=== PATIENT | female | born 2005 | race Caucasian/White ===

== ENCOUNTER 2024-01-24 10:22 | Outpatient (CLI) | payer BC, SELFPAY | END 2024-01-24 10:23 | disposition home or self-care (01) | PROVIDERS: PCP Emergency Medicine; Visit Provider Emergency Medicine | DX: R63.4 Abnormal weight loss (principal); R11.2 Nausea with vomiting, unspecified; R19.7 Diarrhea, unspecified; Z13.228 Encounter for screening for other metabolic disorders; Z13.220 Encounter for screening for lipoid disorders; Z13.29 Encounter for screening for other suspected endocrine disorder | CPT/HCPCS: 80048; 80061; 80076; 84443; 86140; 86258; 86364 ==

== ENCOUNTER 2024-02-18 15:44 | Outpatient (CLI) | payer BC, SELFPAY ==
--- NOTE | 2024-02-18 16:00 | US_ITS ---
Patient: TIMMY PETERSON Facility:?[facility] Patient ID:?[id number] Site Patient ID:?[id number]. Site :?[id number] Study:?US-Abdomen RUQ-02/18/2024 4:23:39 PM Ordering Physician:?DAVID MARX M.D. Final Report: INDICATION: Nausea COMPARISON: none TECHNIQUE: Real time vela scale imaging and color Doppler analysis was performed of the right upper quadrant. FINDINGS: The patient`s liver is of normal size and has diffusely increased echogenicity. The main portal vein measures 6.7 millimeters. There is a normal appearance of the hepatic IVC and proximal abdominal aorta. There is no evidence of ascites. The gallbladder is of normal size and there is no evidence of intraluminal stones or sludge. The gallbladder wall measures 2 mm in thickness. The common bile duct is of normal size and measures 2.8 mm in diameter at the level of the loco hepatis. The pancreas is not well visualized. There is no evidence of a stone or hydronephrosis within the right kidney. The right kidney measures 9.5 cm in length. IMPRESSION: Diffuse hepatic steatosis. Dictated by Dayday Conte MD @ 02/19/2024 1:15:55 PM Signed by:?Dayday Conte MD @02/19/2024 1:15:55 PM (Electronic Signature)
== END 2024-02-18 15:45 | disposition home or self-care (01) ==
LOC: US 15:45
PROVIDERS: PCP Emergency Medicine; Visit Provider Emergency Medicine
DX: R11.0 Nausea (principal); K76.0 Fatty (change of) liver, not elsewhere classified
CPT/HCPCS: 76705